=== PATIENT | female | born 1955 | race African-American/Black ===

== ENCOUNTER 2018-07-04 17:04 | Emergency (ER) | payer BC ==
[2018-07-04] MEDS ORDERED: NORMAL SALINE 1000 ML 1,000 ML IV ONE (18:04)
--- NOTE | 2018-07-04 18:08 | ER Document Report ---
ED Medical Screen (RME) - General Chief Complaint: Fever Stated Complaint: FEVER Time Seen by Provider: 07/04/18 18:00 Primary Care Provider: GIGI PARR MD [Primary Care Provider] - Follow up as needed TRAVEL OUTSIDE OF THE [place] 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 George ([place]), for evaluation due to patient reporting temperature of 101 for a brief period of time today. Patient states that she does have some foul-smelling urine, but is otherwise feeling well. She is eating and drinking without difficulty. She is having normal bowel movements. Denies current FEL[place], fever, neck pain, URI, CP, SOB, Abd pain, n/v/d, or rash. I have treated and performed a rapid initial assessment of this patient. A comprehensive ED assessment and evaluation of the patient, analysis of test results and completion of medical decision making process will be conducted by additional ED providers. PHYSICAL EXAMINATION: GENERAL: Well-appearing, well-nourished and in no acute distress. A&Ox4. Answers questions appropriately. LUNGS: Breath sounds clear to auscultation bilaterally and equal. No wheezes rales or rhonchi. HEART: Regular rate and rhythm without murmurs, rubs, gallops. NEUROLOGICAL: Normal speech, normal gait. PSYCH: Normal mood, normal affect. - Related Data Allergies/Adverse Reactions: codeine [Codeine] Allergy (Verified 08/14/15 20:57) Past Medical History Renal/ Medical History: Denies: Hx Peritoneal Dialysis GI Medical History: Reports: Hx Gastroesophageal Reflux Disease Past Surgical History: Reports: Hx Breast Surgery - right, Hx Cholecystectomy, Hx Hysterectomy, Hx Tubal Ligation. Denies: Hx Pacemaker Physical Exam - Vital signs Vitals: Temp Pulse Resp BP Pulse Ox 98.5 F 88 16 153/99 H 100 07/04/18 17:23 07/04/18 17:23 07/04/18 17:23 07/04/18 17:23 07/04/18 17:23 Course - Vital Signs Vital signs: Temp Pulse Resp BP Pulse Ox 98.5 F 88 16 153/99 H 100 07/04/18 17:23 07/04/18 17:23 07/04/18 17:23 07/04/18 17:23 07/04/18 17:23 Doctor's Discharge - Discharge Referrals: GIGI PARR MD [Primary Care Provider] - Follow up as needed
--- NOTE | 2018-07-04 18:38 | RADIOLOGY REPORT (SQ) ---
EXAM DESCRIPTION: CHEST 2 VIEWS COMPLETED DATE/TIME: 07/04/2018 6:27 pm REASON FOR STUDY: fever, CA with active chemo treatments COMPARISON: 08/14/2015 EXAM PARAMETERS: NUMBER OF VIEWS: two views TECHNIQUE: Digital Frontal and Lateral radiographic views of the chest acquired. RADIATION DOSE: NA LIMITATIONS: none FINDINGS: LUNGS AND PLEURA: No opacities, masses or pneumothorax. No pleural effusion. MEDIASTINUM AND HILAR STRUCTURES: No masses or contour abnormalities. HEART AND VASCULAR STRUCTURES: Heart normal size. No evidence for failure. BONES: No acute findings. HARDWARE: [id number] is in place. Catheter tip overlies the distal SVC. OTHER: No other significant finding. IMPRESSION: NO ACUTE RADIOGRAPHIC FINDING IN THE CHEST. TECHNICAL DOCUMENTATION: JOB ID: [id number] [employer]- All Rights Reserved Reading location - IP/workstation name: [email or web address]
[2018-07-04 19:47] LABS: APPEARANCE,URINE CLEAR; BILIRUBIN,URINE NEGATIVE (NEGATIVE); COLOR,URINE YELLOW; GLUCOSE, URINE NEGATIVE (NEGATIVE); KETONES,URINE NEGATIVE (NEGATIVE); LEUKOCYTE ESTERASE,URINE NEGATIVE (NEGATIVE); NITRITE,URINE NEGATIVE (NEGATIVE); PROTEIN,URINE NEGATIVE (NEGATIVE); URINE SPECIFIC GRAVITY 1.013; UROBILINOGEN,URINE NEGATIVE mg/dL (<2.0)
[2018-07-04 20:11] LABS: HEMOGLOBIN 11.6 g/dL (12.0-15.5); MEAN CORPUSCULAR HEMOGLOBIN 29.6 pg (27.0-33.4); MEAN CORPUSCULAR HGB CONC 33.2 g/dL (32.0-36.0); MEAN CORPUSCULAR VOLUME 89 fl (80-97); PLATELET COUNT 256 10^3/uL (150-450); RED BLOOD COUNT 3.93 10^6/uL (3.72-5.28); RED CELL DISTRIBUTION WIDTH 15.3 % (11.5-14.0); WHITE BLOOD COUNT 20.3 10^3/uL (4.0-10.5)
--- NOTE | 2018-07-04 20:11 | ER Document Report ---
ED Fever - General Chief Complaint: Fever Stated Complaint: FEVER Time Seen by Provider: 07/04/18 18:00 Primary Care Provider: GIGI PARR MD [Primary Care Provider] - Follow up as needed Notes: Patient with a diagnosis of breast cancer who has had surgery and is currently on chemotherapy every 3 weeks. She has been well until today when she is felt warm and took her temperature and it was 101 degrees. She waited a while and took it again and it was still 101 degrees. She waited a while and took it for third time and it went to 99.5. She did not take any Tylenol or any other antipyretic. Patient says that she was given a shot for her low blood count last Tuesday and received her last chemo treatment last Tuesday, 8 days ago. She is had some slight headache and some sharp chest pains but no other significant symptoms. No cough or chest congestion. No UTI symptoms except for frequency after she got her shot for leukopenia. Has not had any chills or sweats. Has felt some dizziness. Denies sore throat. Denies any abdominal pains. TRAVEL OUTSIDE OF THE [place] IN LAST 30 DAYS: No - Related Data Allergies/Adverse Reactions: codeine [Codeine] Allergy (Verified 08/14/15 20:57) Past Medical History - Social History Smoking Status: Never Smoker Family History: Reviewed & Not Pertinent Patient has suicidal ideation: No Patient has homicidal ideation: No GI Medical History: Reports: Hx Gastroesophageal Reflux Disease Past Surgical History: Reports: Hx Breast Surgery - right, Hx Cholecystectomy, Hx Hysterectomy, Hx Tubal Ligation. Denies: Hx Pacemaker Review of Systems - Review of Systems Notes: REVIEW OF SYSTEMS: CONSTITUTIONAL : Fever, see HPI. EENT: Denies eye, ear, nose or mouth or throat pain or other symptoms. CARDIOVASCULAR: Denies chest pain. RESPIRATORY: Denies cough, chest congestion, or shortness of breath. GASTROINTESTINAL: Denies abdominal pain or nausea, vomiting, or diarrhea. GENITOURINARY: Denies difficulty or painful urinating, blood in urine. She has had some urinary frequency since she got her injection of medication to increase her blood counts. MUSCULOSKELETAL: Denies back or neck pain. Denies joint pain or swelling. SKIN: Denies rash or skin lesions. NEUROLOGICAL: Denies LOC or altered mental status. Denies headache. Denies sensory loss or motor deficits. ALL OTHER SYSTEMS REVIEWED AND NEGATIVE. Physical Exam - Vital signs Vitals: Temp Pulse Resp BP Pulse Ox 98.5 F 88 16 153/99 H 100 07/04/18 17:23 07/04/18 17:23 07/04/18 17:23 07/04/18 17:23 07/04/18 17:23 Interpretation: Normal. No: Febrile Notes: PHYSICAL EXAMINATION: GENERAL: Well-appearing, in no acute distress. Happy and pleasant individual. HEAD: Atraumatic, normocephalic. EYES: Pupils equal round and reactive to light, extraocular movements intact. ENT: oropharynx clear without exudates. Moist mucous membranes. NECK: Normal range of motion, supple. LUNGS: Breath sounds clear and equal bilaterally. HEART: Regular rate and rhythm without murmurs. ABDOMEN: Soft, nontender. No guarding or rebound. No masses. BACK: No tenderness throughout entire back. EXTREMITIES: Normal range of motion without pain. NEUROLOGICAL: Normal speech, normal gait. Normal sensory, motor, and reflex exams. Awake, alert, and oriented x3. Cranial nerves normal. PSYCH: Normal mood, normal affect. SKIN: Warm, dry, no rashes. Course - Re-evaluation Re-evalutation: 07/04/18 21:[address] Parker, patient's oncologist in [place]. Patient's urinalysis and chemistries were all normal. Her white cell count is 20,300. Dr. Parker suggested that its most likely due to the Neulasta that the patient received last week. Patient looks extremely well. However, since we have access to an IV through the patient's port, we agreed that she would get a gram of Rocephin IV but no other antibiotics, in order to have her covered until we get the results of her blood and urine cultures. Patient understands and is agreeable to that plan. - Vital Signs Vital signs: Temp Pulse Resp BP Pulse Ox 98.5 F 88 16 153/99 H 100 07/04/18 17:23 07/04/18 17:23 07/04/18 17:23 07/04/18 17:23 07/04/18 17:23 - Laboratory Result Diagrams: 07/04/18 19:50 07/04/18 19:50 Laboratory results interpreted by me: 07/04/18 07/04/1807/04/19 19:30 19:50 19:50 WBC 20.3 H Hgb 11.6 L Hct 35.0 L RDW 15.3 H Monocytes % (Manual) 14 H Metamyelocytes % 2 H Myelocytes % 1 H Abs Neuts (Manual) 11.2 H Abs Lymphs (Manual) 5.9 H Abs Monocytes (Manual) 2.8 H Alkaline Phosphatase 164 H Urine Blood SMALL H Discharge - Discharge Clinical Impression: Fever Condition: Stable Disposition: HOME, SELF-CARE Additional Instructions: Fever Fever is the body's reaction to infection. Fever can also occur with illnesses that create fever-producing substances in the body. By itself, fever is not harmful. It helps the body fight invading germs. We are more concerned with: (1) What's causing the fever? (2) How can we keep you more comfortable until the fever goes away? Early in an illness, symptoms are often so vague that a diagnosis can't be made. If the doctor hasn't identified a clear cause for your fever, you will probably develop new symptoms within the next two days. Contact the doctor if you develop severe worsening headache, rash, chest pain, cough with yellow or green sputum, difficulty breathing, abdominal pain, or other new symptoms. There is no reason to treat a fever if you're comfortable. If the fever is causing aches, headache, and fatigue, you can treat it with ibuprofen (Advil, Nuprin, etc) or acetaminophen (Tylenol). Follow the directions on the bottle. Get plenty of liquids (three quarts per day). Rest. Physical work or sports will raise the temperature higher and make you feel much worse. Dress lightly. If you're chilling, this means the temperature is trying to go higher. Take ibuprofen or acetaminophen. When you feel sweaty and "feverish" the temperature is coming down. If the fever doesn't go away within two days or if you become more ill, call the doctor or return at once for re-examination. Your white cell count is increased to 20,300. However, that most likely is due to the fact that she had Neulasta just this past Tuesday. It will continue to cause your white cell count to be elevated for a week or more. You look well and I do not think there is any indications of infection. I spoke with Dr. John zapien and we agreed to give you an injection of an antibiotic but no other medications at this time. Rocephin You have been given an injection of an antibiotic called Rocephin (ceftriaxone). Sometimes the injection must be combined with antibiotic pills. For some infections, such as an uncomplicated ear infection, Rocephin provides all the antibiotic that's needed. The antibiotic will be in your body for about two days. For serious infections, we usually repeat doses of Rocephin daily. Side effects are very unusual following a shot. Women may develop vaginal yeast infections, and babies can get yeast (thrush) in the mouth following the use of antibiotics. Contact your physician if you have symptoms with this medication. Allergy to this antibiotic can result in hives, wheezing, faintness, or itching. If symptoms of allergy occur, call the doctor at once. Record your temperatures if you feel like you are running a fever. Save the recorded temperatures to share with your doctor. Do not take any medication such as ibuprofen or Tylenol for your fever. If you start running a very high fever of 103 degrees or 104 degrees, return for us to reevaluate your condition. FOLLOW-UP CARE: If you have been referred to a physician for follow-up care, call the physicians office for an appointment as you were instructed or within the next two days. If you experience worsening or a significant change in your symptoms, notify the physician immediately or return to the Emergency Department at any time for re-evaluation.
[2018-07-04 20:30] LABS: ABSOLUTE LYMPHOCYTES# (MANUAL) 5.9 10^3/uL (0.5-4.7); ABSOLUTE MONOCYTES # (MANUAL) 2.8 10^3/uL (0.1-1.4); ABSOLUTE NEUTROPHILS# (MANUAL) 11.2 10^3/uL (1.7-8.2); BAND NEUTROPHILS % (MANUAL) 4 % (3-5); BASOPHILS % (MANUAL) 0 % (0-2); EOSINOPHILS % (MANUAL) 2 % (0-6); LYMPHOCYTES % (MANUAL) 28 % (13-45); METAMYELOCYTES % (MANUAL) 2 % (0); MONOCYTES % (MANUAL) 14 % (3-13); SEGMENTED NEUTROPHILS % (MAN) 48 % (42-78); TOTAL CELLS COUNTED 100
[2018-07-04 20:31] LABS: TOXIC VACUOLATION PRESENT
[2018-07-04 20:32] LABS: ANISOCYTOSIS SLIGHT; PLATELET COMMENT ADEQUATE
[2018-07-04 20:34] LABS: ALANINE AMINOTRANSFERASE 25 U/L (9-52); ALKALINE PHOSPHATASE 164 U/L (38-126); ANION GAP 9 (5-19); ASPARTATE AMINO TRANSFERASE 24 U/L (14-36); BILIRUBIN,DIRECT 0.2 mg/dL (0.0-0.4); BILIRUBIN,TOTAL 0.7 mg/dL (0.2-1.3); BLOOD UREA NITROGEN 8 mg/dL (7-20); CALCIUM 9.4 mg/dL (8.4-10.2); CARBON DIOXIDE 27 mmol/L (22-30); CHLORIDE 104 mmol/L (98-107); GLUCOSE 84 mg/dL (75-110); POTASSIUM 3.9 mmol/L (3.6-5.0); SODIUM 139.5 mmol/L (137-145); TOTAL PROTEIN 6.8 g/dL (6.3-8.2)
[2018-07-04 20:35] LABS: MYELOCYTES % (MANUAL) 1 % (0)
[2018-07-04] MEDS ORDERED: CEFTRIAXONE 1 GM/D5W RTU 1 GM/50 ML RTUPB IV ONE (21:27)
[2018-07-04 23:16] VITALS: BP 149/99
[2018-07-05 12:29] LABS: PATH REVIEW PATHOLOGIST REVIEWED
--- NOTE | 2018-07-08 12:43 | ER Document Report ---
Doctor's Note Notes: 07/08/18 12:41 Urine culture has 10,000 - 20,000 Group B streptococcus. Called patient's oncologist in [place] and told him of the results and he said he would take care of it. Faxed the Urine culture results to him. Tanisha Garza MD
== END 2018-07-04 23:17 | disposition home or self-care (01) ==
LOC: ER 17:04
DX: R50.9 Fever, unspecified (principal); C50.919 Malignant neoplasm of unspecified site of unspecified female breast; Z79.899 Other long term (current) drug therapy; R51 Headache; R07.9 Chest pain, unspecified; R35.0 Frequency of micturition; R42 Dizziness and giddiness; Z88.5 Allergy status to narcotic agent
CPT/HCPCS: 36591; 99283; 96361; 96365; 36415; 87040; 87086; 83605; 85025; 87088; 80053; 81001; 71046; J7030; J0696; J1642